=== PATIENT | male | born 1985 | race Caucasian/White ===

== ENCOUNTER 2022-02-18 10:36 | Emergency (ER) | payer OTHER, SELFPAY ==
[2022-02-18 10:42] VITALS: BP 130/98; PULSE 99; TEMP 36.8; O2SAT 98
--- NOTE | 2022-02-18 12:24 | ED.GENADUL_ITS ---
Discharge Plan Discharge Details Chief Complaint: EyeProblem Primary Care Provider: Unknown,Unknown ED Provider: Ingrid Avendano Home Meds and New Rx's Prescriptions: No Action No Known Home Meds HPI General Date/Time Provider Initiated Documentation: 02/18/22 10:46 . Related Data Home Medications Medication Instructions Recorded Confirmed Unknown [No Known Home Meds] 10/11/12 10/11/12 Allergies Allergy/AdvReac Type Severity Reaction Status Date / Time No Known Allergies Allergy Unverified 02/18/22 10:45 General Stated Complaint: EyeProblem SANDER: 4 PFSH Social History Smoking/Tobacco Use Status: Current every day Smoking risk assessment performed?: Yes Drug use: Occasionally Substance use type: marijuana Do you feel safe at home: Yes Do you feel safe in your relationship?: Yes Course Vital Signs Vital signs: Vital Signs Temperature 36.8 C 02/18/22 10:42 Pulse 99 H 02/18/22 10:42 Blood Pressure 130/98 H 02/18/22 10:42 Pulse Oximetry 98 02/18/22 10:42 Temperature 36.8 C 02/18/22 10:42 Temperature Source Temporal Artery Scan 02/18/22 10:42 Pulse 99 H 02/18/22 10:42 Respiratory Effort Non-Labored 02/18/22 10:45 Blood Pressure 130/98 H 02/18/22 10:42 Blood Pressure Position Sitting 02/18/22 10:42 Pulse Oximetry 98 02/18/22 10:42 Oxygen Delivery Method Room Air 02/18/22 10:42 Oxygen Flow Rate 0 02/18/22 10:42 PAWSS Have you Been Recently Intoxicated or Drunk Within the Last 30 days?: No Have you Ever Experienced Previous Episodes of Alcohol Withdrawal?: No Have you ever Experienced Withdrawal Seizures?: No Have you ever Experienced Delirium Tremens(DT)s?: No Have you ever undergone Alcohol Rehabilitation Treatment (i.e, inpt ot outpatient treatment programs)?: No Have you ever Experienced Blackouts?: No Have you ever Combined Alcohol with other Downers within the last 90 days?: No Have you ever Combined Alcohol with any other Substance of Abuse during the last 90 days?: No Positive Blood Alcohol level on Presentation? [PCS.BAL]: No Evidence of Increased Autonomic Activity (i.e. HR>120, tremor, sweating, agitation, nausea)?: No Result: 0
== END 2022-02-18 13:30 ==
DX: Z53.21 Procedure and treatment not carried out due to patient leaving prior to being seen by health care provider (principal)

== ENCOUNTER 2022-04-28 01:09 | Emergency (ER) | payer OTHER, SELFPAY ==
--- NOTE | 2022-04-28 01:00 | DI.RAD_ITS ---
Exam(s) XR HAND RT COMPLETE EXAM: XR HAND RT COMPLETE CLINICAL HISTORY: shot base of index finger with nailgun TECHNIQUE: COMPARISON: CR RIGHT HAND COMPLETE from 10/11/2012 FINDINGS: Three views were obtained. No evidence of acute fracture or dislocation. IMPRESSION: RADIATION DOSE DELIVERED: Total DLP
[2022-04-28 01:11] VITALS: BP 137/88; PULSE 79; RESP 16; TEMP 36.6; O2SAT 100
--- NOTE | 2022-04-28 01:13 | ED.GENADUL_ITS ---
Discharge Plan Disposition Patient Disposition: Home Condition: Good Discharge Details Clinical Impression: Injury of finger by nail gun Primary Care Provider: Unknown,Unknown ED Provider: Laz Isbell Home Meds and New Rx's Prescriptions: New cephalexin 500 mg capsule 500 mg PO QID 2 Days Qty: 8 0RF Discharge Instructions Additional Instructions: At this time there is no evidence of foreign body in your hand or finger. It does appear that your bone was contacted by the nail or device. Please take the antibiotic as directed. The prescription has been sent to your pharmacy on file for a total of 3 days of antibiotic. Please keep the area clean and dry. You can apply triple antibiotic ointment to the abrasion area 2-3 times per day. Do not soak the area. If you notice any worsening of your symptoms, or any new symptoms such as redness, drainage, vomiting, diarrhea, fever, chills, shortness of breath, chest pain, numbness, weakness, or fainting , please return immediately to the emergency department for reevaluation. Please follow up with your primary care provider as soon as possible for reassessment and reevaluation. As always, it was a pleasure participating in your medical care today. Medical Decision Making 36-year-old male presents today for shooting himself in the index finger for his right dominant hand. It occurred just a few moments ago. There was blood. They could not find the nail. They are making a fire pit this evening at midnight. Patient admits to some mild pain with movement, but denies any numbness or tingling. Tetanus shot was 9 years ago. No other complaints at this time. Exam demonstrates a small excoriation on the lateral aspect of the index finger between the PIP joint and the MCP joint. No active bleeding. Distal exam demonstrates good sensation, brisk capillary refill, normal two-point discrimination. No evidence of retained foreign body. Uncertain if this is an entrance wound or just an abrasion. We will get an x-ray for further evaluation. Patient demonstrates normal strength and movement otherwise. Additionally we will update the patient's tetanus. 1:38 AM No foreign body noted on x-ray per radiology or upon my inspection. Small chip appears to be present where the impact site may have been on the index finger. We will start the patient on 3 days of Keflex for prophylaxis against infection. Tetanus is updated. Discussed red flags which to return. I have extensively reviewed the treatment plan and discharge instructions with the patient and their family. I have addressed all patient concerns at this time. The patient and family was made aware of what symptoms to monitor for that would warrant a return to the emergency department. Discussed the plan with the patient and family, they demonstrate verbal understanding and agreement with our assessment and plan at this time. The documentation in this chart was dictated using [employer] dictation software. Please excuse any dictation errors. FINDINGS: Bones/joints: Old fracture the 5th metacarpal is healed. Bone mineralization is age-appropriate. There is no evidence of fracture. No evidence of dislocation. The joint spaces are adequately preserved; no significant degenerative narrowing and no bony erosion seen. Soft tissues: No radiopaque foreign body present. There is soft tissue swelling present. IMPRESSION: 1. No acute osseous abnormality. 2. There is soft tissue swelling present. Thank you for allowing us to participate in the care of your patient. Dictated and Authenticated by: Agustin Villaseñor MD 04/28/2022 1:37 AM Eastern Time ([place] & [place]) Sign Out No HPI General Date/Time Provider Initiated Documentation: 04/28/22 01:10 . HPI Narrative: 36-year-old male presents today for shooting himself in the index finger for his right dominant hand. It occurred just a few moments ago. There was blood. They could not find the nail. They are making a fire pit this evening at midnight. Patient admits to some mild pain with movement, but denies any numbness or tingling. Tetanus shot was 9 years ago. No other complaints at this time. Related Data Home Medications Medication Instructions Recorded Confirmed cephalexin 500 mg capsule 500 mg PO QID 2 days #8 caps 04/28/22 Previous Rx's Medication Instructions Recorded cephalexin 500 mg capsule 500 mg PO QID 2 days #8 caps 04/28/22 Allergies Allergy/AdvReac Type Severity Reaction Status Date / Time No Known Allergies Allergy Unverified 02/18/22 10:45 General SANDER: 4 Review of Systems All systems reviewed & are unremarkable except as noted in HPI and below PFSH All Active Problems (Updated 04/28/22 @ 01:33 by Laz Isbell DO) Injury of finger by nail gun (Acute) Social History (Reviewed 04/28/22 @ 01:15 by PIERRE Otto Smoking/Tobacco Use Status: Current every day Smoking risk assessment performed?: Yes Drug use: Occasionally Substance use type: marijuana Do you feel safe at home: Yes Do you feel safe in your relationship?: Yes Exam Narrative Exam Narrative: 1.Const: Well-nourished, Well-developed, appearing stated age 2.Eyes: PERRL, no conjunctival injection, and symmetrical lids. 3.ENT: Atraumatic external nose and ears. Moist MM. Neck: Symmetric, trachea midline, No thyromegaly. 4.CVS: +S1/S2, No murmurs or gallops. Peripheral pulses 2+ and equal in all ext remities. Brisk capillary refill in all extremities. 5.RESP: Unlabored respiratory effort. Clear to auscultation bilaterally. No wheezes rales or rhonchi 6.GI: Soft, Nontender/Nondistended, No hepatosplenomegaly. No guarding or rebound. 7.MSK: Right index finger demonstrates a small abrasion of the skin at the lateral aspect between the PIP joint and the MCP joint. No palpable foreign rebeca dy. No active bleeding. Distal exam demonstrates brisk capillary refill and normal sensation. 8.Skin: Warm, Dry. No rashes or lesions. 9.Neuro: equity structurer II-XII grossly intact. Sensation grossly intact, no focal neurologic deficits. 10.Psych: (AAO) x3. Appropriate mood and affect
--- NOTE | 2022-04-28 01:37 | DI.VRAD_ITS ---
PROCEDURE INFORMATION: Exam: XR Right Hand Exam date and time: 04/28/2022 1:28 AM Age: 36 years old Clinical indication: Injury or trauma; Other: Shot index finger with nail gun; Puncture; Right TECHNIQUE: Imaging protocol: Radiologic exam of the Right hand. Views: 3 or more views. COMPARISON: No relevant prior studies available. FINDINGS: Bones/joints: Old fracture the 5th metacarpal is healed. Bone mineralization is age-appropriate. There is no evidence of fracture. No evidence of dislocation. The joint spaces are adequately preserved; no significant degenerative narrowing and no bony erosion seen. Soft tissues: No radiopaque foreign body present. There is soft tissue swelling present. IMPRESSION: 1. No acute osseous abnormality. 2. There is soft tissue swelling present. Dictated and Authenticated by: Agustin Villaseñor MD. Ordering:DIANELYS Nesbitt MD
[2022-04-28] MEDS: Cephalexin 500 MG CAP, 4 CAPS/BTL PO (01:42)
--- NOTE | 2022-04-28 01:43 | NUR.NOTE ---
Wound cleaned w soap and water. Bacitracin/bandaid applied per MD request. No bleeding noted. +CSMTs
== END 2022-04-28 01:41 | disposition home or self-care (01) ==
PROVIDERS: Emergency Provider Student in an Organized Health Care Education/Training Program
DX: S61.230A Puncture wound without foreign body of right index finger without damage to nail, initial encounter (principal); W29.4XXA Contact with nail gun, initial encounter
CPT/HCPCS: 90471; 99284; 73130; 99283

== ENCOUNTER 2022-09-10 20:36 | Emergency (ER) | payer BC, SELFPAY ==
[2022-09-10 20:38] VITALS: BP 174/104; PULSE 118; RESP 18; TEMP 36.6; O2SAT 99
--- NOTE | 2022-09-10 20:45 | DI.RAD_ITS ---
Exam(s) XR FOREARM LT EXAM: XR FOREARM LT CLINICAL HISTORY: Proximal left forearm swelling posterior aspect. TECHNIQUE: 2D digital imaging was performed. Two views. COMPARISON: No exams were available for comparison FINDINGS: BONES: No acute fracture is present. No bony destructive lesion is seen. Visualized portion of elbow and wrist joints are unremarkable. SOFT TISSUE: Posterior swelling. No gas collection or foreign body. IMPRESSION: Posterior soft tissue swelling. DATA REPOSITORY: RADIATION DOSE DELIVERED:
--- NOTE | 2022-09-10 20:48 | ED.GENADUL_ITS ---
Discharge Plan Disposition Patient Disposition: Home Discharge Details Clinical Impression: Abscess of left forearm, Bronchitis Primary Care Provider: Unknown,Unknown ED Provider: Kevon Angeles Home Meds and New Rx's Prescriptions: New sulfamethoxazole-trimethoprim [Bactrim DS] 800-160 mg tablet 1 tab PO BID Qty: 10 0RF Discharge Instructions Instructions: Abscess (ED) Additional Instructions: You were seen in the emergency department for your forearm pain. You were diagnosed with an abscess which was opened in the emergency department. Please take these antibiotics as directed. If you develop fevers worsening pain or worsening swelling please return to the emergency department. As we discussed a loop drain was left in place. Please remove this at any time that it becomes uncomfortable. Please remove it by at least Friday of this week, 09/13. Please soak your abscess twice daily in warm water, ideally a bath. For your pain please take medications as follows: 1. Take acetaminophen (Tylenol), 1,000 mg (two 500 mg tabs) every 6 hours 2. Take ibuprofen (Advil), 400 mg every 6 hours. Medical Decision Making This is a quite well-appearing tachycardic but normothermic [id number] 37-year-old with nondominant left proximal forearm swelling and erythema concerning for early cellulitis versus abscess. Patient has no tenderness in his elbow to suggest septic joint. No significant erythema over the elbow to suggest septic bursitis. There is no obvious fluctuance on exam to suggest abscess however the patient's ultrasound did show deeper abscess for which patient will undergo bedside incision and drainage. I suspect that he will do well as an outpatient as he is not immunocompromised and has no history of HIV nor diabetes so anticipate that he will heal well with treatment for abscess with trimethoprim/sulfamethoxazole. Will obtain plain films to assess for any osseous abnormalities. No pain out of proportion to suggest necrotizing soft tissue infection. No systemic symptoms of fevers nor chills to suggest sepsis so I did not feel the patient required broad-spectrum IV antibiotics, blood cultures, nor lactate. He does endorse a chest cold however he has a reassuring pulmonary exam with no rhonchi to suggest pneumonia and is not hypoxic on room air so I do not feel that he has pneumonia but rather bronchitis. 9:58 PM Please see procedure note concerning incision and drainage performed at bedside which patient tolerated well in the emergency department. I instructed him on twice daily warm bath. I also instructed him on care of the loop drain which I left in place. I advised him to leave this in place for at least the next 3 days. I did tell him however that if the drain became uncomfortable or bothered him at all that he could untie it and remove it himself. I advised him to return to the emergency department if he developed fevers, worsening pain, increased swelling or recurrent purulent drainage. Otherwise have asked community outreach advocate Juani to have orthopedics call the patient later this week to ensure that his symptoms are improving. On my preliminary interpretation there are no acute osseous abnormalities on the patient's radiographs. He was persistently tachycardic however I feel this is likely secondary as a result of his incision and drainage. He has not been vomiting to suggest need for IV rehydration. 10:04 PM X-ray with no acute osseous abnormalities. Tachycardia resolved following oral analgesia. HPI General Date/Time Provider Initiated Documentation: 09/10/22 20:38 . HPI Narrative: This is a right-hand dominant 37-year-old rocha with left proximal forearm pain that began indolently 5 days ago. Patient denies any specific trauma to his left forearm. He said that he began noticing swelling with associated pain that progressively got worse. Today his swelling was slightly improved but he elected to come to the emergency department as his symptoms persisted. He takes no medications and denies history of diabetes. He occasionally drinks ethanol and is a daily tobacco smoker but denies any illicit drugs. He denies IV drug use. He also notes that his symptoms coincided with a chest cold for which he has been taking Mucinex. He has not been having a productive cough nor any fevers. He denies chest pain. He has never had symptoms like this in the past except he did have some knee swelling remotely after kneeling onto a nail. His pain is not worse with movement. Related Data Home Medications Medication Instructions Recorded Confirmed sulfamethoxazole 800 1 tab PO BID #10 tabs 09/10/22 mg-trimethoprim 160 mg tablet (Bactrim DS) Previous Rx's Medication Instructions Recorded sulfamethoxazole 800 1 tab PO BID #10 tabs 09/10/22 mg-trimethoprim 160 mg tablet (Bactrim DS) Allergies Allergy/AdvReac Type Severity Reaction Status Date / Time No Known Allergies Allergy Unverified 02/18/22 10:45 General Stated Complaint: Orthopedic SANDER: 4 PFSH All Active Problems (Updated 09/10/22 @ 22:03 by Kevon Angeles MD) Abscess of left forearm (Acute) Bronchitis (Acute) Social History Smoking/Tobacco Use Status: Current every day Tobacco Type: cigarettes Smoking risk assessment performed?: Yes Drug use: Occasionally Substance use type: marijuana Do you feel safe at home: Yes Do you feel safe in your relationship?: Yes Exam Narrative Exam Narrative: General: Well-appearing in no acute distress speaking in complete sentences. Head: Normocephalic, atraumatic Ear, nose, mouth, throat: Grossly normal inspection. Normal voice, handling secretions normally. Neck: Trachea midline. Cardiovascular: Well-perfused distal extremities. Respiratory: Nonlabored respiration. Clear lungs bilaterally. Gastrointestinal: Nondistended abdomen. Musculoskeletal: On the proximal aspect of the posterior left forearm there is an approximately 2 x 2 centimeter slightly erythematous and warm area. There is no fluctuance. There is no pain out of proportion. There is no significant tenderness over the elbow. Patient is full range of motion in his left elbow. He is able to fully pronate and supinate his left forearm. Sensation motor function intact in the left hand across the radian, medial, and ulnar nerve distributions. 2+ left radial pulse. Cap refill less than 2 seconds in the left fingertips. No significantly enlarged axillary lymph nodes. Skin: Normal for age and race, grossly normal temperature and turgor. No acute rash. Neurologic: Alert and appropriate, no apparent acute deficits. Psychiatric: Mood and manner are appropriate. Grooming and personal hygiene are appropriate. Course Vital Signs Vital signs: Vital Signs Temperature 36.6 C 09/10/22 20:38 Pulse 118 H 09/10/22 20:38 Respiratory Rate 18 09/10/22 20:38 Blood Pressure 174/104 H 09/10/22 20:38 Pulse Oximetry 99 09/10/22 20:38 Temperature 36.6 C 09/10/22 20:38 Temperature Source Tympanic 09/10/22 20:38 Pulse 118 H 09/10/22 20:38 Respiratory Rate 18 09/10/22 20:38 Respiratory Effort Normal 09/10/22 20:43 Blood Pressure 174/104 H 09/10/22 20:38 Blood Pressure Position Supine 09/10/22 20:38 Pulse Oximetry 99 09/10/22 20:38 Oxygen Delivery Method Room Air 09/10/22 20:38 Oxygen Flow Rate 0 09/10/22 20:38 Pain Level 3 09/10/22 20:38 Procedures Abscess I/D Site: Upper Extremity Side (if applicable): Left Sedation/analgesia: None Local Anesthetic: Lidocaine 1% and With Epi Amount of anesthesia used (mL): 10 Technique: Incised with #11 Blade Amount of fluid expressed (mL): 5 Irrigation: No Packing used?: [place] Drain (Loop drain left in place) POCUS Exam (ED) Limited Soft Tissue Exam DATE OF EXAM: 09/10/22 TIME OF EXAM: 21:15 LOCATION OF EXAM: Upper extremity/left REASON FOR EXAM: Abscess Exam Complete DIFFERENTIAL DIAGNOSES: Anechoic area with swirl sign and surrounding cobblestoning concerning for abscess with superimposed cellulitis. PAWSS Have you Been Recently Intoxicated or Drunk Within the Last 30 days?: Yes Have you Ever Experienced Previous Episodes of Alcohol Withdrawal?: No Have you ever Experienced Withdrawal Seizures?: No Have you ever Experienced Delirium Tremens(DT)s?: No Have you ever undergone Alcohol Rehabilitation Treatment (i.e, inpt ot outpatient treatment programs)?: No Have you ever Experienced Blackouts?: No Have you ever Combined Alcohol with other Downers within the last 90 days?: No Have you ever Combined Alcohol with any other Substance of Abuse during the last 90 days?: No Positive Blood Alcohol level on Presentation? [PCS.BAL]: No Evidence of Increased Autonomic Activity (i.e. HR>120, tremor, sweating, agitation, nausea)?: No Result: 1
[2022-09-10 21:22] VITALS: O2SAT 96
[2022-09-10] MEDS: Acetaminophen 500 MG TAB 1000 MG PO (21:23)
[2022-09-10] MEDS: Sulfameth/Trimeth DS TAB 1 TAB PO (21:23)
[2022-09-10] MEDS: Ibuprofen 600 MG TAB PO (21:24)
[2022-09-10 21:30] VITALS: PULSE 103; RESP 19; O2SAT 98
--- NOTE | 2022-09-10 22:04 | DI.VRAD_ITS ---
PROCEDURE INFORMATION: Exam: XR Left Forearm Exam date and time: 09/10/2022 9:19 PM Age: 37 years old Clinical indication: Other: Proximal left forearm swelling posterior aspect TECHNIQUE: Imaging protocol: Radiologic exam of the left forearm. Views: 2 views. COMPARISON: No relevant prior studies available. FINDINGS: Bones/joints: No fractures. Proximal and distal radioulnar alignment is normal. Elbow joint alignment is normal. Carpal relationships are normal. No blastic or lytic lesions. No elbow joint effusion. No gross wrist joint effusion. No articular erosions. Soft tissues: No periostitis or osteolysis. Moderate soft tissue swelling in the mid to proximal posterior to medial forearm and posterior elbow. No soft tissue air. No radiopaque foreign bodies are identified. Other findings: Normal mineralization. IMPRESSION: 1. Nonspecific soft tissue swelling in the mid to proximal forearm and elbow, cellulitis versus edema. No soft tissue air or foreign bodies. 2. No osseous abnormalities. Dictated and Authenticated by: Kevon Melgar MD. Ordering:SOTERO Lund MD
[2022-09-10 22:08] VITALS: O2SAT 97
[2022-09-10 22:10] VITALS: BP 140/86; PULSE 91; O2SAT 96
[2022-09-10 22:13] VITALS: PULSE 89; O2SAT 99
== END 2022-09-10 22:15 | disposition home or self-care (01) ==
PROVIDERS: Emergency Provider Emergency Medicine
DX: L02.414 Cutaneous abscess of left upper limb (principal); J40 Bronchitis, not specified as acute or chronic; F17.210 Nicotine dependence, cigarettes, uncomplicated
CPT/HCPCS: 10060; 76882; 99284; 73090

== ENCOUNTER 2024-10-17 22:20 | Emergency (ER) | payer OTHER, SELFPAY ==
[2024-10-17] VITALS (13 sets, daily range): BP systolic 122–157; BP diastolic 75–119; PULSE 69–115; RESP 10–22; TEMP 36.8; O2SAT 91–100
--- NOTE | 2024-10-17 22:15 | RT.EKG_ITS ---
APPROVED REPORT Exam: Resting ECG Reason for Exam: SOB Patient Location: E HR:94 bpm ECG Measurements Heart Rate 94 AXIS AZ 137 P 55 QRSd 98 QRS 65 QT 356 T 64 QTc 446 Conclusion Sinus rhythm...normal P axis, V-rate 60- 99 Physician: no stemi, No [id number]
--- NOTE | 2024-10-17 22:30 | DI.RAD_ITS ---
Exam(s) XR CHEST 2V PA LATERAL EXAM: XR CHEST 2V PA LATERAL CLINICAL HISTORY: cough, sob, suspect asthma TECHNIQUE: 2D digital imaging was performed of the chest. Three images were obtained. PA and later al views were obtained. COMPARISON: No exams were available for comparison FINDINGS: MEDIASTINUM: Normal. HEART: Normal. PULMONARY VASCULATURE: Normal. LUNGS: The lungs are hyperinflated with flattened diaphragms suggesting underlying COPD. No focal co nsolidating infiltrates are present. PLEURAL SPACE: No pleural effusion or pneumothorax. BONE:Within normal limits for the patient's age. OTHER FINDINGS:Normal. IMPRESSION: 1. Hyperinflation of the lungs which can be seen with underlying COPD. Please correlate clinically. 2. No focal consolidating infiltrates. 3. The preliminary [facility] report was reviewed. DATA REPOSITORY: RADIATION DOSE DELIVERED:
--- NOTE | 2024-10-17 22:41 | ED.GENADUL_ITS ---
Discharge Plan Disposition Patient Disposition: Home Condition: Good Discharge Details Clinical Impression: Asthma exacerbation, Encounter for smoking cessation counseling Primary Care Provider: None,None ED Provider: Laz Isbell Home Meds and New Rx's Prescriptions: New varenicline tartrate [Chantix Starting Month Box] 0.5 mg (11)- 1 mg (42) tablets,dose pack See Rx Instructions .ROUTE .COMPLEX Qty: 53 0RF Rx Instructions: orally per package directions nicotine [Nicoderm CQ] 7 mg/24 hr patch 24 hour 1 patch transdermal Q24H Qty: 14 0RF nicotine (polacrilex) [Nicorette] 2 mg gum 2 mg buccal Q2H Qty: 20 0RF prednisone 50 mg tablet 50 mg PO DAILY Qty: 5 0RF albuterol sulfate 90 mcg/actuation HFA aerosol inhaler 2 puff inhalation Q6H PRNQty: 8.5 3RF Discharge Instructions Instructions: Asthma, Adult ED, Quitting Smoking ED Additional Instructions: At this time your symptoms are consistent with an asthma exacerbation. Please take the steroid prednisone as directed to help decrease the inflammation in your lungs. Please use the albuterol inhaler, 2 puffs every 6 hours for the next week or so as needed for any shortness of breath. I have provided you with 2 options for smoking cessation. The first recommended option would be Chantix. This has been sent to your pharmacy. Please take it as prescribed. An alternative would be Nicorette which would include a combination of a patch and the gum. This is found to be helpful as an alternative to Chantix. Please do not take both together. If you notice any worsening of your symptoms, or any new symptoms such as vomiting, diarrhea, fever, chills, shortness of breath, chest pain, numbness, weakness, or fainting , please return immediately to the emergency department for reevaluation. Please follow up with your primary care provider as soon as possible for reassessment and reevaluation. As always, it was a pleasure participating in your medical care today. Discharge Data Discharge Date/Time-TO BE ENTERED AT DEPARTURE: 10/17/24 23:46 HPI General Date/Time Provider Initiated Documentation: 10/17/24 22:25 . HPI Narrative: 39-year-old male with a past medical history of regular tobacco abuse for the last 20 years smoking 1 pack/day, presents for mild shortness of breath. Patient states that about 48 hours ago he began to get quite short of breath. He had been working with a significant amount of dust and sawdust however this is his occupation and what he normally does. He admits to it being hard to breathe, mild achiness with breathing. He denies any fever or chills. He denies any hemoptysis. No trauma. Just prior to arrival, while coming to the ED his symptoms notably improved after being significantly worse. Patient denies any other complaints at this time. No other modifying factors. Related Data Home Medications ?Medication ?Instructions ?Recorded ?Confirmed albuterol sulfate 90 mcg/actuation 2 puff inhalation Q6H PRN #8.5 10/17/24 aerosol inhaler grams nicotine (polacrilex) 2 mg gum 2 mg buccal Q2H #20 ea 10/17/24 (Nicorette) nicotine 7 mg/24 hr daily 1 patch transdermal Q24H #14 ea 10/17/24 transdermal patch (Nicoderm CQ) prednisone 50 mg tablet 50 mg PO DAILY #5 tabs 10/17/24 varenicline tartrate 0.5 mg (11)-1 See Rx Instructions PO .COMPLEX 10/17/24 mg (42) tablets in a dose pack #53 dose pk (Chantix Starting Month Box) Previous Rx's ?Medication ?Instructions ?Recorded albuterol sulfate 90 mcg/actuation 2 puff inhalation Q6H PRN #8.5 10/17/24 aerosol inhaler grams nicotine (polacrilex) 2 mg gum 2 mg buccal Q2H #20 ea 10/17/24 (Nicorette) nicotine 7 mg/24 hr daily 1 patch transdermal Q24H #14 ea 10/17/24 transdermal patch (Nicoderm CQ) prednisone 50 mg tablet 50 mg PO DAILY #5 tabs 10/17/24 varenicline tartrate 0.5 mg ()-1 See Rx Instructions PO .COMPLEX 10/17/24 mg (42) tablets in a dose pack #53 dose pk (Chantix Starting Month Box) Allergies Allergy/AdvReac Type Severity Reaction Status Date / Time No Known Allergies Allergy Unverified 09/16/22 13:17 General Stated Complaint: SOB SANDER: 3 Exam Narrative Exam Narrative: 1.Const: Well-nourished, Well-developed, appearing stated age 2.Eyes: PERRL, no conjunctival injection, and symmetrical lids. 3.ENT: Atraumatic external nose and ears. Moist MM. Neck: Symmetric, trachea midline, No thyromegaly. 4.CVS: +S1/S2, Peripheral pulses 2+ and equal in all extremities. Brisk capillary refill in all extremities. 5.RESP: Mild wheeze in the left upper lung field. No signs of respiratory distress. No rhonchi or rales. 6.GI: Soft, Nontender/Nondistended, No hepatosplenomegaly. No guarding or rebound. 7.MSK: Normocephalic/Atraumatic, Extremities w/o deformity or ttp No cyanosis or clubbing, Normal movement of all extremities 8.Skin: Warm, Dry. No rashes or lesions. 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 Sensation grossly intact, no focal neurologic deficits. 10.Psych: (AAO) x3. Appropriate mood and affect Course Vital Signs Vital signs: Vital Signs Temperature 36.8 C 10/17/24 22:34 Pulse 115 H 10/17/24 22:34 Respiratory Rate 20 10/17/24 22:34 Blood Pressure 157/119 H 10/17/24 22:34 Pulse Oximetry 96 10/17/24 22:34 Temperature 36.8 C 10/17/24 22:34 Pulse 115 H 10/17/24 22:34 Respiratory Rate 22 10/17/24 22:39 Respiratory Effort Short of Breath, Incrsd Work of Breathing 10/17/24 22:39 Respiratory Depth Normal 10/17/24 22:39 Respiratory Pattern Normal 10/17/24 22:39 Blood Pressure 157/119 H 10/17/24 22:34 Pulse Oximetry 96 10/17/24 22:39 Procedure Smoking Cessation Time Spent Discussing Smoking Cessation with Patient: 00:10 Patient Acknowledges Need for Cessation: Yes Comments: Smoking cessation was discussed for an extended period of time. Patient has elected for Chantix use Medical Decision Making 39-year-old male with a past medical history of regular tobacco abuse for the last 20 years smoking 1 pack/day, presents for mild shortness of breath. Patient states that about 48 hours ago he began to get quite short of breath. He had been working with a significant amount of dust and sawdust however this is his occupation and what he normally does. He admits to it being hard to breathe, mild achiness with breathing. He denies any fever or chills. He denies any hemoptysis. No trauma. Just prior to arrival, while coming to the ED his symptoms notably improved after being significantly worse. Patient denies any other complaints at this time. No other modifying factors. Exam demonstrates well-appearing male, mild wheeze in the left upper lung cook. No signs of significant respiratory distress. No hypoxemia. Heart rate in the 90s. No recent long trips surgeries or procedures or estrogen use to suggest PE or DVT. No significant pleuritic chest pain to suggest PE. No chest heaviness or severe pain to suggest ACS. EKG shows no evidence of STEMI or significant abnormality. No S1 Q3 or T3. No vomiting to suggest Boerhaave's tear. No cough or fever to suggest pneumonia. Differential is highest for asthma exacerbation secondary to long history of smoking use. Will get an x-ray to rule out other atypical acute acute process, will give a breathing treatment and 60 mg of prednisone. Patient is asking for treatment for smoking, and we will send a prescription of Chantix. 11:39 PM On reassessment the patient is feeling much better. He feels well and has no difficulty breathing or shortness of breath. Repeat exam shows notable improvement/resolution of the wheezing and restrictive lung sounds. Patient is otherwise notably stable and appropriate for discharge. Patient will be given prescription for prednisone at home, albuterol inhalers, and smoking cessation options. Discussed red flags for which to return. I have extensively reviewed the treatment plan and discharge instructions with the patient and their family. I have addressed all patient concerns at this time. The patient and family was made aware of what symptoms to monitor for that would warrant a return to the emergency department. Discussed the plan with the patient and family, they demonstrate verbal understanding and agreement with our assessment and plan at this time. The documentation in this chart was dictated using [employer] dictation software. Please excuse any dictation errors. FINDINGS: Lungs: Hyperinflated. No consolidation. Pleural spaces: Unremarkable. No pleural effusion. No pneumothorax. Heart/Mediastinum: Unremarkable. No cardiomegaly. Bones/joints: Unremarkable. IMPRESSION: Hyperinflation of the lungs. Thank you for allowing us to participate in the care of your patient. Dictated and Authenticated by: Herson Romeo DO 10/18/2024 12:33 AM Eastern Time ([place] & [place]) Quality:SDOH Health Related Social Needs: No Data to Display PFSH All Active Problems (Updated 10/17/24 @ 22:50 by Laz Isbell DO) Encounter for smoking cessation counseling (Acute) Asthma exacerbation (Acute) Surgical History (Updated 09/16/22 @ 14:30 by Nataly Greenberg MD) Status post incision and drainage (~09/10/22) Left forarm abscess Social History Smoking/Tobacco Use Status: Current every day Tobacco Type: cigarettes Smoking risk assessment performed?: Yes Alcohol Intake: current Alcohol Intake frequency: a few times a week Drug use: Occasionally Substance use type: marijuana Housing: apartment Current gender identity: male Do you feel safe at home: Yes Do you feel safe in your relationship?: Yes
[2024-10-17] MEDS: predniSONE 20 MG TAB 60 MG PO (22:47)
[2024-10-17] MEDS: Albuterol/Ipratropium 3 ML UPD VIAL UPD (22:47)
[2024-10-17] MEDS: Albuterol HFA 8 GM 60 PUFF INH IH (23:35)
--- NOTE | 2024-10-18 00:33 | DI.VRAD_ITS ---
PROCEDURE INFORMATION: Exam: XR Chest Exam date and time: 10/17/2024 11:06 PM Age: 39 years old Clinical indication: Other: Cough, SOB, suspect asthma TECHNIQUE: Imaging protocol: Radiologic exam of the chest. Views: 2 views. COMPARISON: No relevant prior studies available. FINDINGS: Lungs: Hyperinflated. No consolidation. Pleural spaces: Unremarkable. No pleural effusion. No pneumothorax. Heart/Mediastinum: Unremarkable. No cardiomegaly. Bones/joints: Unremarkable. IMPRESSION: Hyperinflation of the lungs. Dictated and Authenticated by: Herson Romeo MD. Orderin Sukhi Nesbitt MD
== END 2024-10-17 23:46 | disposition home or self-care (01) ==
PROVIDERS: Emergency Provider Student in an Organized Health Care Education/Training Program
DX: J45.901 Unspecified asthma with (acute) exacerbation (principal); F17.218 Nicotine dependence, cigarettes, with other nicotine-induced disorders; Z71.6 Tobacco abuse counseling
CPT/HCPCS: 99284 ×2; 99407; 94640; 93005; 71046; 93010; J7512; J7620